=== PATIENT | female | born 1950 | race Caucasian/White ===

== ENCOUNTER 2018-03-11 08:00 | Outpatient (CLI) | payer MEDICARE, OTHER | END 2018-03-11 10:35 | disposition home or self-care (01) | LOC: D.MAMMO 08:00 | DX: Z12.31 Encounter for screening mammogram for malignant neoplasm of breast (principal) ==

== ENCOUNTER 2019-05-28 08:00 | Outpatient (CLI) | payer MEDICARE, OTHER | END 2019-05-28 23:59 | disposition home or self-care (01) | LOC: D.MAMMO 08:00 | PROVIDERS: ATTEND Internal Medicine | DX: Z12.31 Encounter for screening mammogram for malignant neoplasm of breast (principal) ==

== ENCOUNTER 2019-06-24 08:00 | Outpatient (CLI) | payer MEDICARE, OTHER | END 2019-06-24 23:59 | disposition home or self-care (01) | LOC: D.MAMMO 08:00 | PROVIDERS: ATTEND Internal Medicine | DX: R92.8 Other abnormal and inconclusive findings on diagnostic imaging of breast (principal) ==

== ENCOUNTER 2021-03-07 14:15 | Outpatient (CLI) | payer MEDICARE, OTHER | END 2021-03-07 23:59 | disposition home or self-care (01) | LOC: D.MAMMO 14:15 | PROVIDERS: ATTEND Internal Medicine | DX: Z12.31 Encounter for screening mammogram for malignant neoplasm of breast (principal) ==